=== PATIENT | male | born 1970 | race American Indian/Alaskan Native ===

== ENCOUNTER 2022-03-26 16:32 | Emergency (ER) | payer OTHER ==
[~2022-03-26] VITALS: Ht 162.6 cm; Wt 80.5 kg
[2022-03-26 18:36] VITALS: BP 139/91
[2022-03-26] MEDS ORDERED: SULF-261 PO (20:01)
== END 2022-03-26 21:07 | disposition home or self-care (01) ==
LOC: EMS 16:34
DX: S80.262A Insect bite (nonvenomous), left knee, initial encounter (principal); W57.XXXA Bitten or stung by nonvenomous insect and other nonvenomous arthropods, initial encounter; Y93.89 Activity, other specified; Y92.89 Other specified places as the place of occurrence of the external cause; Y99.8 Other external cause status
CPT/HCPCS: 10060; 99283